=== PATIENT | female | born 1995 | race Caucasian/White ===

== ENCOUNTER → 2022-04-19 | Outpatient (CLI) | payer OTHER, SELFPAY ==
[2022-04-19 15:48] LABS: Progesterone Level 25.16 ng/mL (See Comment)
== END | disposition home or self-care (01) ==
LOC: WOBLAB 14:03
PROVIDERS: Visit Provider Obstetrics & Gynecology
DX: Z51.81 Encounter for therapeutic drug level monitoring (principal)
CPT/HCPCS: 36415; 84144